=== PATIENT | male | born 1980 ===

== ENCOUNTER 2018-02-23 20:54 | Emergency (ER) | payer BC ==
[2018-02-23] MEDS ORDERED: Ketorolac 30 MG/ML SDV IVPUSH ONE (22:55)
[2018-02-23] MEDS ORDERED: Sodium Chloride 0.9% 1,000 ML IV SCH (23:00)
--- NOTE | 2018-02-23 23:02 | EDM.PDOC ---
<Jannet Lackey Dorota - Last Filed: 02/23/18 22:57> ED HPI GENERAL MEDICAL PROBLEM - General Chief Complaint: Flank Pain Stated Complaint: BACK PAIN Time Seen by Provider: 02/23/18 22:43 Source of Information: Reports: Patient, RN Notes Reviewed History Limitations: Reports: No Limitations - History of Present Illness INITIAL COMMENTS - FREE TEXT/NARRATIVE: Patient is a 38 year old male who presents to the ED for the evaluation of left sided flank pain. He notes that this started around 1 week ago, he was seen in the walk in clinic and given some pain medication and muscle relaxers. These helped the pain initially, but last night his pain changed. This became more of a sharp stabbing pain, and he is finding it hard to find a comfortable position to sleep in. He states that the pain kind of comes and goes in waves, and it radiates to his LLQ. He would rate his pain at a 6-7/10 right now. He has not taken anything for the pain for a few hours now. He states that his last BM was at 2 pm and this was normal in nature for him. He denies any fever/chills, nausea/vomiting/diarrhea, chest pain or shortness of breath. He does still have an appendix and his gallbladder. He further denies any dysuria, urinary frequency or urgency. Left Flank Pain Score (Numeric/FACES): 7 - Related Data Allergies Allergy/AdvReac Type Severity Reaction Status Date / Time sulfamethoxazole Allergy Rash Verified 02/23/18 21:17 [From Bactrim] trimethoprim [From Bactrim] Allergy Rash Verified 02/23/18 21:17 Home Meds: Home Meds . [No Known Home Meds] 02/23/18 [History] Past Medical History - Past Health History Medical/Surgical History: Denies Medical/Surgical History Social & Family History - Tobacco Use Smoking Status *Q: Current Every Day Smoker Years of Tobacco use: 4 Packs/Tins Daily: 0.2 - Caffeine Use Caffeine Use: Reports: Coffee, Soda - Recreational Drug Use Recreational Drug Use: No ED ROS GENERAL - Review of Systems Review Of Systems: See Below Constitutional: Denies: Fever, Chills HEENT: Reports: No Symptoms Respiratory: Denies: Shortness of Breath, Cough Cardiovascular: Denies: Chest Pain Endocrine: Reports: No Symptoms GI/Abdominal: Denies: Constipation, Diarrhea, Nausea, Vomiting : Reports: Flank Pain (left). Denies: Dysuria, Frequency, Hematuria, Urgency , Urinary Retention Musculoskeletal: Reports: Back Pain (lower lumbar back pain) Skin: Reports: No Symptoms Neurological: Reports: No Symptoms Psychiatric: Reports: No Symptoms Hematologic/Lymphatic: Reports: No Symptoms Immunologic: Reports: No Symptoms ED EXAM, RENAL/ - Physical Exam Exam: See Below Exam Limited By: No Limitations General Appearance: Alert, WD/WN, No Apparent Distress Eye Exam: Bilateral Eye: Normal Inspection Ears: Normal External Exam Nose: Normal Inspection Throat/Mouth: Normal Inspection, Normal Oropharynx Head: Atraumatic, Normocephalic Neck: Normal Inspection Respiratory/Chest: No Respiratory Distress, Lungs Clear, Normal Breath Sounds, No Accessory Muscle Use, Chest Non-Tender Cardiovascular: Normal Peripheral Pulses, Regular Rate, Rhythm, No Murmur GI/Abdominal: Normal Bowel Sounds, Soft, No Organomegaly, No Distention, No Mass , Tender (left flank and into LLQ). No: Guarding, Rigid, Rebound Back Exam: Normal Inspection, Full Range of Motion. No: CVA Tenderness (L), CVA Tenderness (R), Muscle Spasm Extremities: Normal Inspection, Normal Capillary Refill Neurological: Alert, Oriented, Normal Cognition, No Motor/Sensory Deficits Psychiatric: Normal Affect, Normal Mood Skin Exam: Warm, Dry, Intact, Normal Color, No Rash Course - Vital Signs Last Recorded V/S: Last Vital Signs Temp 36.5 C 02/23/18 21:19 Pulse 84 02/23/18 21:19 Resp 20 02/23/18 21:19 BP 154/101 H 02/23/18 21:19 Pulse Ox 100 02/23/18 21:19 - Orders/Labs/Meds Orders: Active Orders 24 hr Category Date Time Status Strain Urine [RC] ASDIRECTED Care 02/23/18 22:54 Active Abdomen Pelvis wo Cont [CT] Stat Exams 02/23/18 22:54 Taken Sodium Chloride 0.9% [Normal Saline] 1,000 ml Med 02/23/18 23:00 Active IV ASDIRECTED Medication Orders Sodium Chloride (Normal Saline) 1,000 mls @ 150 mls/hr IV ASDIRECTED CHILANGO Last Admin: 02/23/18 23:23 Dose: 150 mls/hr Labs: Laboratory Tests 02/23/18 Range/Units 21:58 Urine Color Light yellow (Yellow) Urine Appearance Clear (Clear) Urine pH 6.0 (5.0-8.0) Ur Specific [place] 1.025 (1.005-1.030) Urine Protein Negative (Negative) Urine Glucose (UA) Negative (Negative) Urine Ketones Negative (Negative) Urine Occult Blood Trace-lysed H (Negative) Urine Nitrite Negative (Negative) Urine Bilirubin Negative (Negative) Urine Urobilinogen 0.2 (0.2-1.0) Ur Leukocyte Esterase Negative (Negative) Urine RBC 0-5 (0-5) /hpf Urine WBC Not seen (0-5) /hpf Ur Epithelial Cells Not seen (0-5) /hpf Urine Bacteria Rare (FEW) /hpf Urine Mucus Not seen (FEW) /hpf Meds: Medications Generic Name Dose Route Start Last Admin Trade Name Freq PRN Reason Stop Dose Admin Sodium Chloride 1,000 mls @ 150 mls/hr 02/23/18 23:00 02/23/18 23:23 Normal Saline IV 150 mls/hr ASDIRECTED CHILANGO Administration Discontinued Medications Generic Name Dose Route Start Last Admin Trade Name Freq PRN Reason Stop Dose Admin Ketorolac Tromethamine 30 mg 02/23/18 22:55 02/23/18 23:22 Toradol IVPUSH 02/23/18 22:56 30 mg ONETIME ONE Administration - Re-Assessments/Exams Free Text/Narrative Re-Assessment/Exam: 02/23/18 23:05 Pt presents to the ED for the evaluation of left flank pain. His UA showed a small amount of blood in the urine. Abdomen/pelvis CT without contrast to further evaluate for kidney stone has been ordered and 30 mg IV toradol for pain relief with IV normal saline started for initial management. Care will be transferred to Dr. Hagen for further management and the results of CT study. Departure - Departure Disposition: Home, Self-Care 01 Clinical Impression: Retroperitoneal mass - Discharge Information Referrals: PCP,None [Primary Care Provider] - Forms: ED Department Discharge Additional Instructions: Establish with her regular doctor as soon as you can. Return to the emergency room with any questions problems worsening symptoms. As we discussed you have a mass in year abdomen that needs to be biopsied it is recommended that you have a MRI with contrast as well as a testicular ultrasound. This needs to be done fairly soon. Try and get into the [facility] sooner. You can try the Hospital clinic here. [phone]. Use the pain medication as needed it can cause constipation so if using on a regular basis take a good stool softener. <Dell Hagen - Last Filed: 02/24/18 01:24> Course - Re-Assessments/Exams Free Text/Narrative Re-Assessment/Exam: 02/24/18 01:[address] done looking for possible kidney stone which she did not have however he has a left-sided retroperitoneal adjacent to the aorta below the left renal vein and artery this measures 6.2 in its greatest dimension by 4.2 x 3.5 it courses with the iliopsoas muscle and contacts the left wall of the aorta. Radiology recommends further evaluation with abdominal pelvic MRI with contrast and testicular ultrasound as well as biopsy of lesion. Did explain this in no uncertain terms to the patient he understands and will establish with a regular doctor soon as he can. He has an appointment at [facility] this coming Thursday02/24/18 01:23 The patient is given [place] from the machine out in the waiting room #20 one or 2 every 6 hours as needed Departure - Departure Time of Disposition: 01:18
--- NOTE | 2018-02-24 07:04 | CT ---
CT abdomen and pelvis Technique: Multiple axial sections were obtained below the dome of the diaphragm inferiorly through the pubic symphysis. Intravenous and oral contrast was not utilized. Study has been performed as a ureteral stone protocol. Findings: Visualized lung bases are clear. Liver shows fatty infiltration. Spleen appears within normal limits. Adrenal glands show no nodule. Pancreas is within normal limits. Gallbladder contains no calcified gallstones. Pancreas is within normal limits. Aorta shows no aneurysm. Retroperitoneal soft tissue density is seen on the left side most likely representing adenopathy. This has a craniocaudal extent of about 9.6 cm with AP dimension of about 3.7 cm and transverse dimension of 5.0 cm. This adenopathy begins below the renal artery and vein. Kidneys show no abnormal calcifications. No ureteral dilatation is seen. No ureteral stone is seen. Pelvis shows no adenopathy. No pelvic mass is seen. Appendix is visualized and is normal in size. No free fluid is seen. Bone window settings were reviewed which appear within normal limits for the patient's age. Impression: 1. Soft tissue density within the left retroperitoneum as described above most likely representing adenopathy. This is most likely neoplastic. Given the patient's age testicular neoplasm is within the differential as well as lymphoma. 2. Fatty infiltration within the liver. 3. No renal calculi, ureteral stone or ureteral dilatation is seen. Diagnostic code #9 I agree with preliminary report from [facility], finalized on 02/24/18, 12:42 AM Central Time
== END 2018-02-24 01:38 | disposition home or self-care (01) ==
LOC: JD.ED 20:54
DX: R19.09 Other intra-abdominal and pelvic swelling, mass and lump (principal); F17.210 Nicotine dependence, cigarettes, uncomplicated; Z88.2 Allergy status to sulfonamides
CPT/HCPCS: 74176; 81001; 96361; 96374; 99284; J1885; J7040; 99283